=== PATIENT | male | born 1950 | race Caucasian/White ===

== ENCOUNTER 2017-06-29 18:42 | Observation (INO) | payer MEDICARE, BC ==
[~2017-06-29] VITALS: Ht 180.3 cm; Wt 66.0 kg
--- NOTE | ~2017-06-29 | CN ---
Consultation Report [facility] [address] [place]. [address] NAME: GEORGI RAMIREZ JR : 48 STATUS : DIS Crystal PAT#: [id number] AGE: 67 ADM/REG DATE : 06/29/17 MR#: [id number] REPORT SERV DATE: 07/02/17 DICTATED BY: DATE: REPORT STATUS : Draft TRANSCRIBED BY: MODL DATE: 06/30/17 NEUROLOGY CONSULTATION DATE OF CONSULTATION: 06/30/2017 REASON FOR CONSULTATION: Subacute stroke. HOSPITALIST: Sushant Castorena M.D. HISTORY OF PRESENT ILLNESS: The patient is a 67-year-old male,who developed right hand numbness and loss of fine motor movement on approximately the or 3rd of this month. He states that he woke up in the morning and had difficulty with movement of his hands. He did not think much of this since he does suffer from arthritis. However,as the day progressed these symptoms seemed to worsen. He came to the emergency room on the and had a CT scan, which did not show any acute changes. He then went to his PCP and he ordered an outpatient MRI, which showed that he did have acute embolic stroke. He was transferred to [facility] for further evaluation and treatment. ? Extensively, the patient mentions that he has had some episodes of "dizziness." He denies any dysphagia or dysarthria. He has had some ataxia, however. The patient's mentions that two weeks ago, at about 3 a.m., while he was sitting on the commode, he passed out and fell into the shower. She stated that he was very diaphoretic and weak. She denied seeing any type of seizure movement/activity. PAST MEDICAL HISTORY: Coronary artery disease, heart murmur, congestive heart failure, BOOP, recurrent bronchitis and pneumonia, positive lupus anticoagulant/anticardiolipin antibody, and stroke. PAST SURGICAL HISTORY: Coronary artery bypass grafting and hernia repair. HOME MEDICATION: List consists of Augmentin 875 mg b.i.d. x10 days, Pulmicort inhaler two puffs twice a day, Coreg 6.25 mg daily, [place] 12.5 mg every morning, Prolia 60 mg subcu every 180 days, Nexium 20 mg daily, Mucinex 600 mg every morning, [place] 5/325 mg at bedtime, Krill oil 1000 mg daily, Mobic 7.5 mg twice a day, Singulair 10 mg every morning, Centrum tablet daily, potassium gluconate 99 mg every morning, Pravachol 20 mg at bedtime, prednisone 20 mg on a p.r.n. basis, Xarelto 20 mg at bedtime, trazodone 50 mg at bedtime, betamethasone cream topically to affected areas daily, iron supplement, and Synodrin joint tablets twice a day. ALLERGIES: LATEX. SOCIAL HISTORY: The patient is . He has one child. He is retired from the insurance business. He does not smoke, drink, alcohol, or use illicits. FAMILY HISTORY: The patient's mother from heart disease. His father from dementia. He has one brother, who is overweight and had an [place]. Consultation Report [address] [place]. [address] NAME: GEORGI RAMIREZ JR : 48 STATUS : DIS Crystal PAT#: [id number] AGE: 67 ADM/REG DATE : 06/29/17 MR#: [id number] REPORT SERV DATE: 07/02/17 DICTATED BY: DATE: REPORT STATUS : Draft TRANSCRIBED BY: MODL DATE: 06/30/17 REVIEW OF SYSTEMS: For pertinent positives, please see HPI. PHYSICAL EXAMINATION: GENERAL: The patient is a 67-year-old male, who stands 5 foot 11 inches and weighs 145 pounds. VITAL SIGNS: He is afebrile. Heart rate 77, respiratory rate 12, O2 saturations on room air 100%, blood pressure 125/59. NEURO: The patient is alert. He is oriented x4, pleasant, communicates appropriately. Pupils are 3 mm. PERRLA. EOMs are intact. However, the patient does have lateral nystagmus with leftward gaze. Peripheral vision via confrontation is full in both camarena. No facial droop. No tongue deviation. Uvula is midline. No reported sensory deficits. There is a slight pronator drift on the right. [id number] reveals ataxia on the right. Upper extremity strength is 4/5 on the right compared to the left, which is 5/5 and no reported sensory deficits. DTRs are 2+ bilaterally in the upper extremities. Lower extremities, strength is 5/5 bilaterally. The patient does have ataxia with [id number] on the right, none on the left. No reported sensory deficits. Lower DTRs are 2+ bilaterally. Downgoing toes. The patient can ambulate with fairly good locomotion. There is no ataxia. Romberg is negative. He cannot tandem. NECK: No carotid bruits, JVD, or thyromegaly. CHEST: Lung sounds clear. CARDIAC: Regular rate and rhythm with a grade 2/6 systolic murmur. LABORATORY DATA: CBC is relatively normal. Platelet count is 120. BMP normal. INR 3.3. TSH 1.79. Cholesterol values are normal. A1c 5.2. Carotid duplex study, category 1 disease bilaterally. MRI of the brain shows an acute infarct in the right cerebellar and cerebellar vermis, right occipital lobe, right parietal, right and left frontal lobes. MRA of the head and neck, no acute abnormality. Echocardiogram, 50% LVEF, negative bubble, mild aortic stenosis. NIH stroke scale is 3. ASSESSMENT/PLAN: Subacute embolic stroke. At this point, the patient is already on Xarelto, so there is no point in doing a loop recorder implantation or REMBERTO. We will add aspirin 81 mg daily and increase his Pravachol to 40 mg at bedtime. The patient education was done on anticardiolipin antibody syndrome and risk factor reduction for stroke. Occupational therapy was ordered to evaluate his right hand and do some therapy for fine motor movement. At this point, we will sign off for Neurology. Thank you again for this consultation. My collaborating physician, Dr. Casie Donahue, was made aware of the patient's case and plan of care. DICTATED BY: Cecille Salazar DNP, ACNP- Consultation Report [address] [address] NAME: JAMESGEORGI MACEDO JR : 48 STATUS : DIS Crsytal PAT#: [id number] AGE: 67 ADM/REG DATE : 06/29/17 MR#: [id number] REPORT SERV DATE: 07/02/17 DICTATED BY: DATE: REPORT STATUS : Draft TRANSCRIBED BY: DUSTIN DATE: 06/30/17 THALIA/DUSTIN Parish Donahue MD / [id number] CC: Aminata Nevarez M.D.
--- NOTE | ~2017-06-29 | DS ---
Discharge Summary [facility] [address] [place]. [address] NAME: GEORGI RAMIREZ JR : 48 STATUS : DIS Crystal PAT#: [id number] AGE: 67 ADM/REG DATE : 06/29/17 MR#: [id number] REPORT SERV DATE: 07/01/17 DICTATED BY: SUSHANT CASTORENA DATE: 06/30/17 REPORT STATUS : Draft TRANSCRIBED BY: MODL DATE: 06/30/17 ADMISSION DATE: 06/29/2017 DISCHARGE DATE: 06/30/2017 DISCHARGE DIAGNOSES: 1. Subacute cerebrovascular accident which showed right cerebellar hemisphere, right cerebellar vermis, and right occipital lobe, punctate foci of diffusion areas and in the right parietal lobe and right frontal lobe and left frontal lobe intermediate low signal on AB synopsis consistent with subacute infarction. 2. Prior history of cerebrovascular accident. 3. Coronary artery disease, status post coronary artery bypass graft. 4. Positive anticardiolipin and antiphospholipid antibodies, on chronic anticoagulation. 5. Hypertension. 6. Hyperlipidemia. 7. Osteoarthritis. 8. Osteoporosis. 9. Recent upper respiratory infection, currently on treatment. 10.Gastroesophageal reflux. CONSULTANTS DURING THIS HOSPITALIZATION: 1. Dat Fowler M.D. of Cardiology. 2. Parish Donahue M.D. of Neurology. INVASIVE PROCEDURES DONE DURING THIS HOSPITALIZATION: None. BRIEF HISTORY OF PRESENT ILLNESS: The patient is a 67-year-old white male, who apparently presented to the emergency room on 06/27/2017, CT scan was negative, was sent home to have an outpatient MRI done and follow up with primary care physician. He then continued to have some problems with his right hand, so he presented back to the emergency room and an MRI was done which showed subacute CVA, so he was admitted. For detailed history and physical exam, please see note dictated by Dr. Marcie Montoya on 06/29/2017. HOSPITAL COURSE: After being admitted to the hospital, this patient was kept on neuro check monitor, he did not have any arrhythmias. Cardiology saw the patient in consultation, did not recommend a loop recorder, or a repeat echocardiogram; however, an echocardiogram with a bubble study has been done and report of which will be followed up. This patient is already on Xarelto, so no further anticoagulation will be warranted. He was placed on aspirin. His statin was continued. He did not have any physical therapy needs nor he had any speech needs; however, because of the right hand dysfunction now we will have Occupational Therapy evaluate him and arrange for outpatient occupational therapy for recuperation after stroke. He remained stable otherwise and will be discharged home once Neurology and Occupational Therapy has seen him. DISCHARGE DISPOSITION: Home. DISCHARGE ACTIVITY: As tolerated. Discharge Summary [place] [address] [place]. [id number] NAME: GEORGI RAMIREZ JR : 48 STATUS : DIS Crystal PAT#: [id number] AGE: 67 ADM/REG DATE : 06/29/17 MR#: [id number] REPORT SERV DATE: 07/01/17 DICTATED BY: SUSHANT CASTORENA DATE: 06/30/17 REPORT STATUS : Draft TRANSCRIBED BY: DUSTIN DATE: 06/30/17 DISCHARGE DIET: Low sodium diet. DISCHARGE MEDICATIONS: 1. Augmentin 875 mg p.o. b.i.d., to finish the started course. 2. Mobic 7.5 mg p.o. twice daily. 3. Coreg 6.25 mg p.o. every morning. 4. Mucinex 600 mg every morning. 5. Aspirin 81 mg once daily. 6. [place] 5/325 mg one tablet at bedtime. 7. Singulair 10 mg once every morning. 8. Nexium 20 mg once at bedtime. 9. Pravastatin 20 mg once at bedtime. 10.Xarelto 20 mg once at bedtime. 11.Trazodone 50 mg p.o. at bedtime. 12.Prednisone 20 mg daily p.r.n. per his primary care physician. 13.Betamethasone cream application to affected areas for rash. 14.Pulmicort 180 mcg inhalation two puffs twice daily. 15.Chlorthalidone 12.5 mg once every morning. 16.Krill oil 1000 mg daily. 17.Iron supplements 28 mg twice daily. 18.Multivitamins one tablet every morning. 19.Synodrin Joint Rehab one tablet p.o. twice daily. 20.Potassium gluconate 99 mg once every morning. 21.Prolia 60 mg subcu once every 6 months. DISCHARGE FOLLOWUP: With Dr. Jaret Shipley in one to two weeks. More than 20 minutes spent planning this patient's discharge, reconciling medications, discussing findings with the patient and documenting this discharge. ROSAMARIA/MODL Sushant Castorena M.D. / [id number] CC: Aminata Nevarez M.D. James Hoback Jr., M.D.
--- NOTE | ~2017-06-29 | HP ---
History And Physical [place] [address] [facility] [place]. [address] NAME: GEORGI RAMIREZ JR : 49 STATUS : ADM IN PAT#: [id number] AGE: 67 ADM/REG DATE : 06/29/17 MR#: [id number] REPORT SERV DATE: 06/30/17 DICTATED BY: MICHELLE LOW DATE: 06/29/17 REPORT STATUS : Draft TRANSCRIBED BY: MODL DATE: 06/29/17 DATE OF ADMISSION: 06/29/2017 HISTORY OF PRESENT ILLNESS: The patient is a very pleasant 67-year-old male, who went to the emergency room on 06/27/2017 because he developed right hand numbness and loss of sensation with loss of finer motor movements, and he said the symptoms even started earlier than 06/27/2017, two to three days earlier. He was seen by Dr. Subramanian in the emergency room on 06/27/2017. The patient had CT of the brain without contrast done which did not show any intracranial abnormality, just atrophy and old right occipital and right cerebellar infarction with encephalomalacia with chronic microvascular white matter ischemic changes. The patient was recommended to go home to have an outpatient MRI which were to be arranged by primary care physician, and the patient had an MRI done today, 06/29/2017. He had a MRI of the brain, outpatient, which showed restricted diffusion is seen within the right cerebellar hemisphere, right cerebellar vermis, right occipital lobe, punctate foci of diffusion area seen in the right parietal lobe and right frontal lobe and left frontal lobe, intermediate low signal on AB synopsis suggesting chronic ischemic infarctions of approximately 48 to 72 hours old. He also had MRA of the head and neck, which was unremarkable. The patient because of these events and because of this abnormal imaging, the patient basically presents as a direct transfer to [facility]. The patient currently denies any chest pain, no shortness of breath. No fever. No rash. No headaches. All 14-point review of systems done and negative except for weakness on the right hand, numbness has resolved, but the right hand is weaker and he has difficulties to do fine motor movements. He denies any blurry vision nor any problems of weakness in the legs, and no other symptoms. He also has cough which started several days since he and his had cold and bronchitis and for this he takes amoxicillin. PAST MEDICAL HISTORY: Known for past medical history is known for history of coronary artery disease, status post coronary artery bypass grafting in 2000, history of heart murmur. The patient does not recall if he had any arrhythmia. He is followed by Dr. Fowler. He also said Dr. Fowler told him that his heart muscle has weakened, there is possibility of congestive heart failure. He was supposed to echocardiogram. History BOOP, history of recurrent bronchitis and pneumonia history of stroke in 2011, history of positive lupus anticoagulant and cardiolipin antibody in February 2012 when patient was admitted with a stroke. PAST SURGICAL HISTORY: Includes hernia surgery in 1998. SOCIAL HISTORY: No alcohol, no smoking, no recreational drug use. . at the bedside. FAMILY HISTORY: Father had heart disease. Mother of dementia. ALLERGIES: THERE ARE NO KNOWN DRUG ALLERGIES. HE IS ALLERGIC TO LATEX. HOME MEDICATIONS: Include Krill oil 1000 mg a day, iron supplement 28 mg twice a day, Alavert daily, potassium 99 mg daily, pravastatin 20 mg daily, carvedilol 6.25 a day, Nexium 22 mg a day, Xarelto 20 mg daily, chlorthalidone 25 mg half pill a day, Prolia injections History And Physical [address] [address] NAME: GEORGI RAMIREZ REMINGTON MARTELL : 48 STATUS : ADM IN [facility]#: [id number] AGE: 67 ADM/REG DATE : 06/29/17 MR#: [id number] REPORT SERV DATE: 06/30/17 DICTATED BY: MICHELLE LOW DATE: 06/29/17 REPORT STATUS : Draft TRANSCRIBED BY: DUSTIN DATE: 06/29/17 every six months, Meloxicam 7.5 mg twice a day, Pulmicort inhaler three puffs three times a day, hydrocodone 5/325 q.6 hours p.r.n., Singulair 10 mg a day, trazodone 50 mg a day, amoxicillin 875 mg twice a day, he already had it for six days, he needs four more days. PHYSICAL EXAMINATION: GENERAL: Well-nourished, well-developed male, not in acute distress. Resting quietly. VITAL SIGNS: Blood pressure 137/62, temperature 98.4, heart rate 69, respiratory rate 19, oxygen saturation 95 on room air. HEENT: Head atraumatic, normocephalic. Conjunctivae clear. Pupils are equal and reactive to light and accommodation. Extraocular muscles are intact. NECK: Supple. Trachea is midline. No supraclavicular or cervical lymphadenopathy. LUNGS: Clear to auscultation bilaterally. Normal respiratory effort. CARDIOVASCULAR SYSTEM: Regular rate and rhythm. Point of maximal impulse not displaced. ABDOMEN: Soft, nontender, nondistended. Positive normoactive bowel sounds. EXTREMITIES: No clubbing, cyanosis, or edema. SKIN: Normal color and turgor PSYCHIATRIC: Normal mood and affect. NEUROLOGIC: Muscle strength is 5/5 bilaterally in upper and lower extremities. On the right hand, there is difficulty to perform fine motor movements. He is unable to touch with both fingers at the same time. He said the numbness has gone now, but the fine movements are worsening. Deep tendon reflexes 2/4 bilaterally in upper and lower extremities. SKIN: Normal color and turgor. LABORATORY RESULTS: For today are ordered by me are pending. I have here laboratory results from 06/27/2017, two days ago, showed white count 8.6, hemoglobin 10.9, hematocrit 30.8, platelet count 144. PTT 145.2, PTT 24. INR on 06/27/2017 was 2.2. Sodium 134, potassium 3.8, chloride 97, carbon dioxide 31, BUN 36, creatinine 1.6. His blood sugar is 89. His troponin 0.02. ALT 14, AST 25. Chest x-ray, PA and lateral, which was done on 06/27/2017 did not show any acute cardiopulmonary abnormality. ASSESSMENT AND PLAN: This is a very pleasant 67-year-old male with a past medical history of coronary artery disease, history of bronchiolitis obliterans organizing pneumonia and history of stroke in 2011, presented with a recurrent stroke in the same area in the hand. We are going to put the patient on cardiac telemetry bed. We will do EKG on him, and we will try to identify if the patient has any abnormal heart rhythm or arrhythmia as well as we do echocardiography with bubble study and bilateral carotid ultrasound, but I would like to mention that in 2011, he was found to have positive lupus anticoagulant and cardiolipin antibody, and I would like to mention also that in 06/27/2017, his PT was 24 and INR was 2.2, although he is on Xarelto. There is a possibility he still has positive lupus anticoagulant. I will consult Neurology, Dr. Lester, neurologist on-call, Dr. Rice, as well as I will consult the patient's manager of project management, Dr. Fowler. After neurological evaluation, I will strongly recommend also Hematology consult, since the patient is already on Xarelto and he had positive lupus anticoagulant and cardiolipin antibody in the past. There is a possibility that he will need also evaluation by flame hardener. We will also check his fasting lipid profile and continue his Xarelto and my partner will see this patient starting History And Physical [address] [place]. [address] NAME: JAMESGEORGI MACEDO : 48 STATUS : ADM IN PAT#: [id number] AGE: 67 ADM/REG DATE : 06/29/17 MR#: [id number] REPORT SERV DATE: 06/30/17 DICTATED BY: MICHELLE LOW DATE: 06/29/17 REPORT STATUS : Draft TRANSCRIBED BY: DUSTIN DATE: 06/29/17 tomorrow morning. /DUSTIN Michelle Low M.D. / [id number] CC: Aminata Acosta JOHN D. Tareck Kadrie, M.D.
--- NOTE | ~2017-06-29 | CN ---
Consultation Report [facility] [address]. [address] NAME: GEORGI RAMIREZ JR : 49 STATUS : ADM IN PAT#: [id number] AGE: 67 ADM/REG DATE : 06/29/17 MR#: [id number] REPORT SERV DATE: 06/30/17 DICTATED BY: CRISTAL FOWLER JR. DATE: 06/30/17 REPORT STATUS : Draft TRANSCRIBED BY: MODL DATE: 06/30/17 CARDIOLOGY CONSULT DATE OF CONSULTATION: 06/30/2017 REFERRING PHYSICIAN: Dr. Montoya/Jose. REASON FOR CONSULTATION: TIA, stroke. HISTORY OF PRESENT ILLNESS: 67-year-old white male, followed at [facility] for coronary heart disease, status post old 2008 CABG with no recurrent angina. He has had a history of a stroke in the past. He has thrombophilia with lupus anticoagulant and is on long-term anticoagulation, currently with Xarelto 20 mg daily. He recently read that Xarelto can cause a headache, and when he had a headache he called and wanted to switched to Eliquis. This switch has not been performed yet, but his Eliquis prescription is at [facility]. In the past, he has had mild left carotid disease. Carotid ultrasound this admission and echocardiogram this admission are pending. I tried to get an echocardiogram ordered at his last visit in April of this year, but this has not been performed. He has a soft systolic ejection murmur consistent with aortic valve disease and possibly mild diastolic decrescendo murmur. He has a low-pitched carotid bruit or transmitted murmur at his left carotid, the right carotid sounds normal. He has BOOP. He has hyperlipidemia. Recent history of numbness and lack of fine motor skills in the right hand, which persist. His right face also is a bit droopy today. Pertinent laboratory studies include an INR of 3.3. Potassium of 4.0, BUN and creatinine 25 and 1.3 respectively. Hemoglobin 10.9 with 86 MCV, platelets 120,000, white count 5800. Troponin is less than 0.02. His 2014 echocardiogram showed 1 to 2+ aortic insufficiency with new left atrial enlargement. Ejection fraction of 60% with diastolic dysfunction. ALLERGIES: LATEX ALLERGY. MEDICATIONS: Home medication list reviewed. SOCIAL HISTORY: Nonsmoker. No illicit drugs. FAMILY HISTORY: ASCVD. Consultation Report [facility] [address] [place]. [address] NAME: GEORGI RAMIREZ JR : 49 STATUS : ADM IN PAT#: [id number] AGE: 67 ADM/REG DATE : 06/29/17 MR#: [id number] REPORT SERV DATE: 06/30/17 DICTATED BY: CRISTAL FOWLER JR. DATE: 06/30/17 REPORT STATUS : Draft TRANSCRIBED BY: DUSTIN DATE: 06/30/17 PHYSICAL EXAMINATION: VITAL SIGNS: Blood pressure 137/58, pulse is 84 and regular, respirations 18, afebrile. HEENT: No xanthelasma. NECK: No JVD at 30 degrees, no thyromegaly. Left carotid bruit or transmitted murmur. LUNGS: Clear to auscultation and percussion. COR: No thrills, heaves, normal S1, S2. No gallop. No rub. Systolic ejection murmur and soft diastolic decrescendo murmur at base. Regular rhythm. ABD: Soft, nontender, no hepatosplenomegaly, no mass. EXT: Without edema or pulse deficit. MS: Back without spine or costovertebral angle tenderness. NEURO: Symmetric findings. Right facial weakness noted. Right upper extremity numbness and weakness noted. No left body findings. DISCUSSION: In practical terms, the only finding that would change treatment is an ultrasound showing a tight left carotid lesion. He needs to stay on anticoagulation. No matter what the echocardiogram, loop recorder, telemetry etc. Shows. His coronary heart disease is stable. His EKG is unchanged and he is having no angina, status post old CABG. Echocardiogram was ordered as an outpatient, but has not been performed since there was ordered two months ago. Echocardiogram to assess aortic valve function is pending at the time of dictation. In the past, he had mild left carotid disease on an old ultrasound. Thank you for this consultation. RAFAELA/DUSTIN Cristal Fowler Jr., M.D. / [id number] CC: Aminata Nevarez John D.
[~2017-06-29 18:42] MED LIST: ASAEC PO; AUG500 PO; BYSTOLIC2.5 MG PO; CHROMIUM PIC OR; COREG3 PO; GLUCCHONDR PO; IVVIBRA PO; LOP25 PO; MOBIC15 MG PO; MOBIC7.5 PO; P20 PO; SINGULAIR1 PO; SLO-NIACIN500 MG PO; UROXATRAL PO; VITAMIN B-122500 MCG SL; ZOCOR40 PO; [UNRECOGNIZED DRUG - OTHER] PO
[2017-06-29] MEDS ORDERED: P20 PO (22:23)
[2017-06-29] MEDS ORDERED: AUG875 PO (22:24)
[2017-06-29] MEDS ORDERED: [UNRECOGNIZED DRUG - OTHER] PO (22:24)
[2017-06-29] MEDS ORDERED: TRAZ50 PO (22:25)
[2017-06-29] MEDS ORDERED: MOBIC7.5 PO (22:25)
[2017-06-29] MEDS ORDERED: PRAVAC PO (22:25)
[2017-06-29] MEDS ORDERED: COREG6 PO (22:26)
[2017-06-29] MEDS ORDERED: BETAMETHASONE TOP (22:26)
[2017-06-29] MEDS ORDERED: PULMICORT180 MCG INH (22:27)
[2017-06-29] MEDS ORDERED: XARELTO20 MG PO (22:27)
[2017-06-29] MEDS ORDERED: KRILLOIL PO (22:27)
[2017-06-29] MEDS ORDERED: SINGULAIR1 PO (22:27)
[2017-06-29] MEDS ORDERED: HYGROTON 25 MG25 MG PO (22:27)
[2017-06-29] MEDS ORDERED: [UNRECOGNIZED DRUG - OTHER] PO (22:28)
[2017-06-29] MEDS ORDERED: IRON SUPPLEMENT PO (22:28)
[2017-06-29] MEDS ORDERED: CENTRUM PO (22:28)
[2017-06-29] MEDS ORDERED: PROLIA60 MG/1 ML SC (22:29)
[2017-06-29] MEDS ORDERED: NORCO1 TA1 PO (22:29)
[2017-06-29] MEDS ORDERED: POTASSIUM GLUCO99 MG PO (22:29)
[2017-06-29] MEDS ORDERED: NEXIUM20 M1 PO (22:30)
[2017-06-29] MEDS ORDERED: MUCINEX600 MG PO (22:30)
[2017-06-29 23:27] LABS: TROPONIN I <0.02 NG/ML (<0.05)
[2017-06-30 06:01] LABS: BASOPHILS 0.2 %; BASOPHILS ABSOLUTE 0.01 10/3/uL (0.0-0.16); EOSINOPHILS 5.4 %; EOSINOPHILS ABSOLUTE 0.31 10/3/uL (0.0-0.53); HEMATOCRIT 30.4 % (40.0-51.0); HEMOGLOBIN 10.9 g/dL (13.6-17.8); IMMATURE GRANULOCYTES 0.5 %; IMMATURE GRANULOCYTES ABSOLUTE 0.03 10/3/uL (0.0-0.11); LYMPHOCYTES 15.3 %; LYMPHOCYTES ABSOLUTE 0.88 10/3/uL (0.67-4.30); MEAN CORPUS HGB CONC 35.9 g/dL (32.0-36.0); MEAN CORPUSCULAR HEMOGLOB 30.7 pg (26.0-34.0); MEAN CORPUSCULAR VOLUME 85.6 fL (80-100); MEAN PLATELET VOLUME 9.4 fL (9.2-13.0); MONOCYTES 8.3 %; MONOCYTES ABSOLUTE 0.48 10/3/uL (0.21-1.20); NEUTROPHILS 70.3 %; NEUTROPHILS ABSOLUTE 4.06 10/3/uL (2.02-8.40); PLATELET COUNT 120 10/3/uL (150-400); RBC DISTRIBUTION WIDTH 12.4 % (12.0-16.0); RED CELL COUNT 3.55 10/6/uL (4.7-6.1); WHITE BLOOD CELLS 5.8 10/3/uL (4.5-10.5)
[2017-06-30 06:04] LABS: MANUAL DIFF NO %
[2017-06-30 06:10] LABS: INTERNATIONAL NORMAL RATI 3.3 UNITS (-); PROTIME (NOT ORD) 32.9 SEC (12.0-14.5)
[2017-06-30 06:12] LABS: BUN (BLOOD UREA NITROGEN) 25 MG/DL (6-23); CALCIUM, SERUM 8.8 MG/DL (8.5-10.4); CHLORIDE, SERUM 103 MMOL/L (96-112); CHOL/HDL RATIO(NOT ORDER) 4.4 (0-5); CHOLESTEROL 115 MG/DL (< 200); CO2 (CARBON DIOXIDE) 26 MMOL/L (24-34); CREATININE 1.29 MG/DL (0.70-1.30); GFR AFRICAN AMERICAN 66 ML/MIN (>=60); GFR NON AFRICAN AMERICAN 57 ML/MIN (>=60); GLUCOSE, SERUM 88 MG/DL (60-99); HDL CHOLESTEROL 26 MG/DL (> 39); LDL CHOLESTEROL 65 MG/DL (< 130); NON-HDL CHOLESTEROL 89 MG/DL (< 160); SODIUM, SERUM 135 MMOL/L (135-148); TRIGLYCERIDE 122 MG/DL (< 150)
[2017-06-30 06:22] LABS: PARTIAL THROMBO TIME > 150.0 SEC (22.5-37.2)
[2017-06-30 08:10] LABS: TROPONIN I <0.02 NG/ML (<0.05)
== END 2017-06-30 18:53 | disposition home or self-care (01) ==
LOC: ENRESERV → ENRESERVDT → ENRESERVTM → 1SO 20:06
PROVIDERS: Hospitalist
DX: I63.9 Cerebral infarction, unspecified (principal); I25.10 Atherosclerotic heart disease of native coronary artery without angina pectoris; I10 Essential (primary) hypertension; E78.5 Hyperlipidemia, unspecified; M32.9 Systemic lupus erythematosus, unspecified; M19.90 Unspecified osteoarthritis, unspecified site; M81.0 Age-related osteoporosis without current pathological fracture; K21.9 Gastro-esophageal reflux disease without esophagitis; J06.9 Acute upper respiratory infection, unspecified; R29.818 Other symptoms and signs involving the nervous system; R93.0 Abnormal findings on diagnostic imaging of skull and head, not elsewhere classified; Z95.1 Presence of aortocoronary bypass graft; Z87.01 Personal history of pneumonia (recurrent); Z86.73 Personal history of transient ischemic attack (TIA), and cerebral infarction without residual deficits; Z82.49 Family history of ischemic heart disease and other diseases of the circulatory system; Z81.8 Family history of other mental and behavioral disorders; Z91.040 Latex allergy status; Z79.2 Long term (current) use of antibiotics; Z79.891 Long term (current) use of opiate analgesic; Z79.1 Long term (current) use of non-steroidal anti-inflammatories (NSAID); Z79.01 Long term (current) use of anticoagulants; Z79.899 Other long term (current) drug therapy; Z98.890 Other specified postprocedural states
CPT/HCPCS: 70544; 70553; 80048; 80061; 82607; 82746; 83036; 83735; 84443; 84484; 85025; 85610; 85730; 93005; 93306; 93880; 94640; 97161-GP; 97165-GO; A9270-GY; A9577; G0378; G8978-CH-GP; G8979-CH-GP; G8980-CH-GP; G8987-CI-GO; G8988-CI-GO; G8989-CI-GO